=== PATIENT | male | born 1985 | race Caucasian/White ===

== ENCOUNTER 2019-01-14 03:25 | Emergency (ER) | payer SELFPAY ==
[~2019-01-14] VITALS: Ht 172.7 cm; Wt 98.1 kg
[2019-01-14 03:29] VITALS: BP 142/93; PULSE 98; RESP 16; Ht 172.7 cm; Wt 98.1 kg
[2019-01-14] MEDS ORDERED: ACET-141 PO (06:35)
--- NOTE | 2019-01-14 06:35 | ERD ---
ER Documentation Chief Complaint Chief Complaint L groin pain x 2 years HPI 33-year-old male presents for left groin mass times 2 years. Patient is currently sleeping and the girl he is with gives the history. She states the patient was in halfway and was supposed to have surgery done however he was released from halfway around January 2018. He has not followed up with a provider or surgeon. She states that he complains of pain intermittently. Denies any fevers or chills. He is having normal bowel movements. Denies abdominal pain, nausea, vomiting. He is currently homeless. ROS All systems reviewed and are negative except as per history of present illness. Allergies Allergies: Coded Allergies: No Known Allergy (Unverified , 01/14/19) Physical Exam Vitals Vital Signs Date Temp Pulse Resp B/P (MAP) Pulse Ox O2 O2 Flow FiO2 Time Delivery Rate 01/14/19 96.5 98 16 142/93 99 03:29 (109) Physical Exam Const: No acute distress Resp: Clear to auscultation bilaterally Cardio: Regular rate and rhythm, no murmurs Abd: Soft, non tender, non distended. Normal bowel sounds, left inguinal hernia palpable, fully reducible, no overlying erythema Skin: No petechiae or rashes Ext: No cyanosis, or edema Procedures/MDM Medical Decision Makin-year-old male presents for left inguinal hernia times 2 years. Patient appeared well on physical exam. The left inguinal hernia is palpable, fully reducible. No incarceration noted. Patient also having normal bowel movements. Denies abdominal pain, nausea, vomiting. Given that there is no incarceration and no small bowel obstruction and hernia is fully reducible, patient advised that surgery will have to be done on an elective basis. Patient advised that he will need follow-up with his primary care physician for a referral to general surgery. Patient given information for local clinics for primary care follow-up. Patient advised to follow up with PCP in 1-2 days. Patient advised to return to ED for new or worsening symptoms. Patient stable on discharge from the ED. Disclaimer: Inadvertent spelling and grammatical errors are likely due to EHR/dictation software use and do not reflect on the overall quality of patient care. Also, please note that the electronic time recorded on this note does not necessarily reflect the actual time of the patient encounter. Departure Diagnosis: Primary Impression: Hernia Condition: Fair Patient Instructions: Hernia (Inguinal, Ventral, Umbilical) Referrals: [facility] YOU HAVE RECEIVED A MEDICAL SCREENING EXAM AND THE RESULTS INDICATE THAT YOU DO NOT HAVE A CONDITION THAT REQUIRES URGENT TREATMENT IN THE EMERGENCY DEPARTMENT. FURTHER EVALUATION AND TREATMENT OF YOUR CONDITION CAN WAIT UNTIL YOU ARE SEEN I N YOUR DOCTORS OFFICE WITHIN THE NEXT 1-2 DAYS. IT IS YOUR RESPONSIBILITY TO MAKE AN APPOINTMENT FOR FOLOW-UP CARE. IF YOU HAVE A PRIMARY DOCTOR --you should call your primary doctor and schedule an appointment IF YOU DO NOT HAVE A PRIMARY DOCTOR YOU CAN CALL OUR PHYSICIAN REFERRAL HOTLINE AT IF YOU CAN NOT AFFORD TO SEE A PHYSICIAN YOU CAN CHOSE FROM THE FOLLOWING [facility] [address] [facility]. [facility] [address] [facility] [facility] [address] [facility] [facility] [address] [facility]. [facility] [address] [facility]. [facility]. [address] Additional Instructions: Call your primary care doctor TOMORROW for an appointment during the next 1-2 days.See the doctor sooner or return here if your condition worsens before your appointment time. NILDA SCHMITT DO Jan 14, 2019 06:35
== END 2019-01-14 07:04 | disposition home or self-care (01) ==
LOC: FTE 03:25
DX: K46.9 Unspecified abdominal hernia without obstruction or gangrene (principal)
CPT/HCPCS: 99282